=== PATIENT | female | born 1960 | race Caucasian/White ===

== ENCOUNTER → 2020-08-22 15:27 | Outpatient (CLI) | payer BC, SELFPAY ==
--- NOTE | ~2020-08-22 | MM_ITS ---
EXAMINATION: MM screening clarissa BI w mehul HISTORY: Screening mammogram TECHNIQUE: Craniocaudal and mediolateral oblique 3-D tomosynthesis images were obtained and synthetic 2-D images were generated. CAD analysis was submitted and interpreted. COMPARISON: 08/20/2019, 08/05/2018, 08/03/2017 bilateral digital screening mammogram examinations BREAST PARENCHYMAL COMPOSITION: There are scattered areas of fibroglandular density. FINDINGS: There is a biopsy marker on left. History of prior benign left breast biopsies. There is an approximately 5 mm new opacity at mid depth in the ower outer left breast (craniocaudal t omosynthesis image 21/75). Diagnostic left mammogram and left breast ultrasound are recommended. Otherwise there is no evidence of suspicious mass, calcification, or architectural distortion to sugg est malignancy in either breast. There has been no other suspicious interval change. IMPRESSION: 1. New 5 mm mass suggested in the lower outer quadrant of left breast 2. Diagnostic left mammogram and left breast ultrasound examination are recommended. BI-RADS Category 0: Incomplete: Needs additional imaging evaluation. Reviewed, dictated and finalized at location B. LEMAN IMPRESSION: 1. New 5 mm mass suggested in the lower outer quadrant of left breast 2. Diagnostic left mammogram and left breast ultrasound examination are recomme nded. BI-RADS Category 0: Incomplete: Needs additional imaging evaluation.
== END ==
PROVIDERS: Visit Provider Obstetrics & Gynecology
DX: Z12.31 Encounter for screening mammogram for malignant neoplasm of breast (principal); R92.8 Other abnormal and inconclusive findings on diagnostic imaging of breast
CPT/HCPCS: 77063; 77067

== ENCOUNTER → 2020-09-19 07:58 | Outpatient (CLI) | payer BC, SELFPAY ==
--- NOTE | ~2020-09-19 | MMUS_ITS ---
EXAMINATION: MM diagnostic mammo unilat LT, US breast LT limited HISTORY: Left breast mass on screening mammogram TECHNIQUE: Additional 3-D tomosynthesis images of the left breast were performed and synthetic 2-D im ages were generated. CAD analysis was submitted and interpreted. High resolution limited left breast ultrasound was performed. COMPARISON: 08/22/2020, 08/20/2019, 08/05/2018, 08/03/2017 FINDINGS: MAMMOGRAPHIC FINDINGS: No persistent mass is identified with spot compression views of the breast. There is no suspicious ca lcification or architectural distortion. ULTRASOUND: There is a 5 mm x 3 mm oval, circumscribed, parallel, hypoechoic mass at the 4:00 location 4 cm from the nipple with no posterior features or internal vascularity. A 2 mm round mass with similar sonogra phic features is also seen at the same location. A mass with biopsy change is present at the 6:00 loc ation 6 cm from the nipple. IMPRESSION: 1. Probably benign left breast masses. 2. Recommend 6 month follow-up left diagnostic mammogram and ultrasound. BI-RADS category 3, probably benign findings. Reviewed, dictated and finalized at location A. ORT CLERK IMPRESSION: 1. Probably benign left breast masses. 2. Recommend 6 month follow-up left diagnostic mammogram and ultrasound. BI-RADS category 3, probably benign findings.
== END ==
PROVIDERS: Visit Provider Obstetrics & Gynecology
DX: R92.8 Other abnormal and inconclusive findings on diagnostic imaging of breast (principal)
CPT/HCPCS: 76642; 77065

== ENCOUNTER → 2021-03-26 07:28 | Outpatient (CLI) | payer BC, SELFPAY ==
--- NOTE | ~2021-03-26 | MMUS_ITS ---
EXAMINATION: MM diagnostic clarissa LT w mehul, US breast LT limited HISTORY: Follow-up left breast mass TECHNIQUE: Additional 3-D tomosynthesis images of the left breast were performed and synthetic 2-D im ages were generated. CAD analysis was submitted and interpreted. High resolution Limited left breast ultrasound was performed. COMPARISON: Comparison to multiple prior studies sequentially, with oldest reviewed study dated 07/17. BREAST PARENCHYMAL COMPOSITION: Breast composed of scattered areas of fibroglandular density. FINDINGS: MAMMOGRAPHIC FINDINGS: There are no new masses, calcifications or architectural distortion in the left breast to suggest mal ignancy. Stable benign-appearing left breast mass in the lower inner quadrant with associated tissue marker from previous benign biopsy. ULTRASOUND: Limited left breast ultrasound: At 4:00, 4 cm from the nipple, there is oval hypoechoic 5 mm mass wit hout posterior features, posterior features or internal vascularity. Parallel orientation. At 4:00, 4 cm from the nipple, there is a small 2 mm hypoechoic lesion. At 6:00, 6 cm from the nipple, there is a 3 mm oval hypoechoic mass without posterior features, parallel orientation. At 7:00, 6 cm from the nipple there is a stable hypoechoic mass measuring 6 mm without significant change in size, likely a cluster of microcysts. IMPRESSION: 1. Stable benign-appearing left breast masses. 2. Recommend 6 month follow-up left breast ultrasound BI-RADS category 3, probably benign findings. Reviewed, dictated and finalized at location A. IMPRESSION: 1. Stable benign-appearing left breast masses. 2. Recommend 6 month follow-up left breast ultrasound BI-RADS category 3, probably benign findings.
== END ==
PROVIDERS: Visit Provider Obstetrics & Gynecology
DX: N63.20 Unspecified lump in the left breast, unspecified quadrant (principal); R92.8 Other abnormal and inconclusive findings on diagnostic imaging of breast
CPT/HCPCS: 76642; 77061; 77065; G0279

== ENCOUNTER → 2021-11-14 08:19 | Outpatient (CLI) | payer BC, SELFPAY ==
--- NOTE | ~2021-11-14 | MMUS_ITS ---
EXAMINATION: MM diagnostic clarissa BI w mehul, US breast LT limited HISTORY: Six-month follow-up for probably benign left breast masses TECHNIQUE: Craniocaudal, mediolateral, and mediolateral oblique 3-D tomosynthesis images of the breas ts were performed and synthetic 2-D images were generated. CAD analysis was submitted and interpreted . High resolution limited left breast ultrasound was performed. COMPARISON: 03/26/2021, 09/19/2020, 08/22/2020, 08/20/2019 07/08/2013 BREAST PARENCHYMAL COMPOSITION: There are scattered areas of fibroglandular density. FINDINGS: MAMMOGRAPHIC FINDINGS: There is no suspicious mass, calcification, or architectural distortion in either breast to suggest malignancy. There has been no suspicious interval change. A stable left breast mass with biopsy lee e is seen in the lower inner breast. ULTRASOUND: There is a stable oval hypoechoic mass with no posterior features or internal vascularity at the 7:00 location 6 cm from the nipple corresponding to the previously biopsied mass. The previously describe d masses at the 4:00 and 6:00 location of the breast are no longer identified. IMPRESSION: 1. No mammographic or sonographic evidence of malignancy. 2. Recommend routine screening mammography in one year. BI-RADS Category 2: Benign finding(s). Reviewed, dictated and finalized at location A. IMPRESSION: 1. No mammographic or sonographic evidence of malignancy. 2. Recommend routine screening mammography in one year. BI-RADS Category 2: Benign finding(s).
== END ==
PROVIDERS: Visit Provider Obstetrics & Gynecology
DX: N63.24 Unspecified lump in the left breast, lower inner quadrant (principal); N63.23 Unspecified lump in the left breast, lower outer quadrant; R92.8 Other abnormal and inconclusive findings on diagnostic imaging of breast
CPT/HCPCS: 76642; 77062; 77066; G0279

== ENCOUNTER 2022-04-05 07:20 | Outpatient (CLI) | payer OTHER, SELFPAY ==
[2022-04-05 08:36] LABS: Alanine Aminotransferase 19 U/L (6-35); Albumin Level 4.4 g/dL (3.5-5.1); Alkaline Phosphatase 72 U/L (38-126); Anion Gap 9 mmol/L (8-16); Aspartate Amino Transferase 23 U/L (14-36); Bilirubin,Total 0.2 mg/dL (0.2-1.3); Blood Urea Nitrogen 19 mg/dL (7-17); Carbon Dioxide 30 mmol/L (22-30); Chloride 104 mmol/L (98-107); Cholesterol 192 mg/dL (0-200); Estimated Glomerular Filt Rate > 60; Glucose 100 mg/dL (65-110); HDL Direct 56 mg/dL; Potassium 3.8 mmol/L (3.4-5.0); Sodium 143 mmol/L (137-145); Triglycerides 97 mg/dL (<150)
[2022-04-05 08:47] LABS: LDL Cholesterol Direct 94 mg/dL
[2022-04-05 09:29] LABS: Free T4 Free Thyroxine 1.67 ng/mL (0.78-2.19)
[2022-04-05 09:31] LABS: Hemoglobin A1C 5.2 % (<5.7)
== END 2022-04-05 07:21 | disposition home or self-care (01) ==
PROVIDERS: PCP Emergency Medicine; Visit Provider Emergency Medicine
DX: E03.9 Hypothyroidism, unspecified (principal); E66.9 Obesity, unspecified
CPT/HCPCS: 36415; 80053; 80061; 83036; 84439; 84443

== ENCOUNTER → 2022-05-15 15:40 | Outpatient (CLI) | payer OTHER, SELFPAY ==
--- NOTE | ~2022-05-15 | XR_ITS ---
[id number] 05/15/2022 15:55 Indication: Left foot pain Procedure: 3 views left foot Comparison: No prior studies for comparison. Findings: There is mild osteoarthritis of the first MTP joint with hallux valgus. There is a degenera tive calcaneal enthesophyte. No acute fracture or traumatic malalignment. Lisfranc joint intact. Ther e are mild degenerative changes at the talonavicular joint. 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 2: Degenerative calcaneal enthesophyte at the plantar surface. Reviewed, dictated and finalized at location B. 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 2: Degenerative calcaneal enthesophyte at the plantar surface.
== END ==
PROVIDERS: PCP Emergency Medicine; Visit Provider Emergency Medicine
DX: M19.072 Primary osteoarthritis, left ankle and foot (principal); M77.32 Calcaneal spur, left foot
CPT/HCPCS: 73630

== ENCOUNTER → 2023-05-21 15:18 | Outpatient (CLI) | payer OTHER, SELFPAY ==
--- NOTE | ~2023-05-21 | MM_ITS ---
EXAMINATION: MM screening clarissa BI w mehul HISTORY: Screening mammogram TECHNIQUE: Craniocaudal and mediolateral oblique 3-D tomosynthesis images were obtained and synthetic 2-D images were generated. CAD analysis was submitted and interpreted. COMPARISON: 11/14/2021 diagnostic bilateral mammogram and limited left breast ultrasound examination BREAST PARENCHYMAL COMPOSITION: There are scattered areas of fibroglandular density. FINDINGS: Surgical clips, right axillary area. Biopsy marker on the left; history of prior benign lef t breast biopsy. There is no evidence of suspicious mass, calcification, or architectural distortion to suggest malignancy in either breast. There has been no suspicious interval change. IMPRESSION: 1. No mammographic evidence of malignancy. 2. Recommend routine screening mammography in one year. BI-RADS Category 2: Benign finding(s). Reviewed, dictated and finalized at location B.
== END ==
PROVIDERS: PCP Nurse Practitioner Obstetrics & Gynecology; Visit Provider Nurse Practitioner Obstetrics & Gynecology
DX: Z12.31 Encounter for screening mammogram for malignant neoplasm of breast (principal)
CPT/HCPCS: 77063; 77067

== ENCOUNTER 2024-01-05 13:16 | Outpatient (CLI) | payer OTHER, SELFPAY ==
--- NOTE | ~2024-01-05 | DEXA_ITS ---
Bone Density Report Name: JOE STEVENS Age: 63 Sex: Female Ethnicity: White Date of : 1960 Indication: postmenopausal; screening for osteoporosis; height loss; Referring Provider: PRINCESS CASILLAS Study: Bone densitometry was performed. Exam Date: January 05, 2024 Accession number: [id number] Bone Density: Region BMD T-score Z-score Classification AP Spine (L1, L3, L4) 1.202 1.4 2.9 Normal Femoral Neck (Left) 0.685 -1.5 -0.1 Osteopenia Total Hip (Left) 0.891 -0.4 0.6 Normal Femoral Neck (Right) 0.732 -1.1 0.3 Osteopenia Total Hip (Right) 0.890 -0.4 0.6 Normal Total Hip Mean 0.890 -0.4 0.6 Normal World Health Organization criteria for BMD impression classify patients as: Normal (T-score at or above -1.0), Osteopenia (T-score between -1.0 and -2.5), or Osteoporosis (T-score at or below -2.5). 10-year Fracture Risk(1): Major Osteoporotic Fracture 7.3% Hip Fracture 0.6% Reported Risk Factors: [place] (), Neck BMD=0.685, BMI=38.2 (1) FRAX(R) Version 3.08. Fracture probability calculated for an untreated patient. Fracture probability may be lower if the patient has received treatment. Clinical Information Provided by Patient: Patient maximum height was 63.5 Menopause Age: 58 No regular weight bearing exercise Drinks caffeinated beverages Onset of menses at age 16.5 Number of children 1 Impression: The patient has low bone mass, based on the Left Femoral Neck T-score. The patient has an estimated ten-year risk of hip fracture of 0.6% and an estimated ten-year risk of major fracture of 7.3%, based on the WHO FRAX algorithm. Discussion: BONE DENSITY IS LOW AT ONE OR MORE SKELETAL SITES. This patient's lowest T-score is low at one or more skeletal sites. It meets the World Health Organization's (WHO) criteria for ?low bone mass? (T-score between -1.0 and -2.5). The patient's 10-year risk of fracture as calculated by FRAX is less than the threshold where pharmacological therapy is recommended by the National Osteoporosis Foundation (NOF). However, all treatment decisions require clinical judgment and consideration of individual patient factors, including patient preferences, comorbidities, previous drug use, risk factors not captured in the FRAX model (e.g., frailty, falls, vitamin D deficiency, increased bone turnover, interval significant decline in bone density) and possible under or overestimation of fracture risk by FRAX. The patient should follow a healthful lifestyle (good nutrition with adequate calcium and vitamin D, and appropriate weight-bearing exercise). Follow-Up: Consider repeating this study in 2 to 3 years to reassess this patient's status, or sooner if there is some new clinical indication. Reported by: TANI on 01/05/2024 1:41:00 PM.
== END 2024-01-05 13:17 ==
LOC: MICIMG 13:17
PROVIDERS: PCP Emergency Medicine; Visit Provider Nurse Practitioner Family
DX: Z78.0 Asymptomatic menopausal state (principal); M85.89 Other specified disorders of bone density and structure, multiple sites
CPT/HCPCS: 77080

== ENCOUNTER 2024-04-07 12:32 | Outpatient (CLI) | payer OTHER, SELFPAY ==
[2024-04-07 14:41] LABS: Total Triiodothyronine (T3) 1.35 NG/ML (0.97-1.69)
[2024-04-07 15:13] LABS: Free T4 Free Thyroxine 1.58 ng/mL (0.78-2.19)
== END 2024-04-07 12:33 | disposition home or self-care (01) ==
LOC: ANHGOSHLAB 12:33
PROVIDERS: PCP Emergency Medicine; Visit Provider Emergency Medicine
DX: E03.9 Hypothyroidism, unspecified (principal)
CPT/HCPCS: 36415; 84439; 84443; 84480

== ENCOUNTER 2024-06-18 12:07 | Outpatient (CLI) | payer OTHER, SELFPAY ==
[2024-06-18 12:48] LABS: Erythrocyte Sedimentation Rate 19 mm/hr (0-20)
[2024-06-19 07:43] LABS: CRP, High Sensitivity 7.8 mg/L
[2024-06-20 16:14] LABS: ANA Cascade Screen NEGATIVE (NEGATIVE); SS-A <1.0 NEG AI (<1.0 NEG); SS-B <1.0 NEG AI (<1.0 NEG)
[2024-06-23 18:44] LABS: Vitamin B6 34.6 ng/mL (2.1-21.7)
== END 2024-06-18 12:08 | disposition home or self-care (01) ==
LOC: ANHLAB 12:08
PROVIDERS: PCP Emergency Medicine; Visit Provider Nurse Practitioner Family
DX: E03.9 Hypothyroidism, unspecified (principal); K12.1 Other forms of stomatitis; R20.8 Other disturbances of skin sensation
CPT/HCPCS: 36415; 82607; 84207; 84443; 85652; 86038; 86141; 86225; 86235; 86364

== ENCOUNTER 2024-07-12 18:18 | Emergency (ER) | payer OTHER, SELFPAY ==
[2024-07-12 18:26] VITALS: BP 132/69; PULSE 87; RESP 20; TEMP 36.2; O2SAT 100
--- NOTE | 2024-07-12 18:45 | ED.SKABFB ---
HPI - Skin/Abscess/Foreign Bdy General Chief complaint: Skin/Abscess/Foreign Body Stated complaint: POSSIBLE INSECT BITE Time Seen by Provider: 07/12/24 18:40 Source: patient, family, RN notes reviewed and old records reviewed Mode of arrival: ambulatory Limitations: no limitations History of Present Illness HPI narrative: 64 year old female who presents to [facility] care with complaints of working in the yard on Thursday and she was picking up bunches of leaves and she felt something bite or sting her right lateral abdomen. Patient reports that she noted red raised area that has continued to spread in size since Thursday to 17cm X9Cm with some swelling noted on the outer edges and area of darker red inside with no vesicles or any pustules noted, no weeping from skin. Patient has not taken any OTC medication for her symptoms does report itching of tissue area, denies any shortness of breath or any difficulty with her swallowing. MD complaint: rash, insect bite/sting and other Onset (ago): day(s) (3) Location: chest (right flank area) Severity: moderate Quality: pruritic Treatments prior to arrival: none Related Data Home Medications Medication Instructions Recorded Confirmed omega 2-ctk-yqi-fish oil 100 cap PO 04/07/24 06/14/24 mg-160 mg-1,000 mg capsule (Fish Oil) Allergies Allergy/AdvReac Type Severity Reaction Status Date / Time codeine AdvReac Severe N/V Verified 06/14/24 11:37 HYDROCODONE BIT AdvReac Severe N/V Uncoded 06/14/24 11:37 Review of Systems Review of Systems: CONSTITUTIONAL: Denies fever, chills, or sweats. CARDIOVASCULAR: Denies chest pain, palpitations, or edema. RESPIRATORY: Denies cough or dyspnea. denies any difficulty swallowing. SKIN: Reports rash area to right flank area which is red itchy and has spread from initial bite area to [id number] MUSCULOSKELETAL: Denies joint pain or myalgia. NEUROLOGIC: Denies headache, numbness, or weakness. All systems reviewed & are unremarkable except as noted in HPI and below PMFSH Past Medical History Medical History (Updated 07/12/24 @ 19:39 by Karin Herrera NP) GERD (gastroesophageal reflux disease) Hypertension Hypothyroidism Family History Family History Mother Family history of osteoporosis Grandparent Family history of malignant neoplasm of breast Other Family history of arthritis Family history of malignant neoplasm Hypertension Social History Social History Smoking status: Never smoker Alcohol intake: current Substance use: never Lack of Transportation: No Lack of Food: Never True Current Housing: I Have Housing Concerned About Future Housing: No Difficulty Paying Gas/Electric Bills: No Currently Unemployed: No Education: High School Diploma/GED Difficulty w/ Childcare or Family Care: No Comments At time of signature, agree with nursing past medical, surgical, social and family history. There is no relevant family history pertinent to the presenting complaint Exam Narrative: GENERAL: Well-appearing, well-nourished, and in no acute distress. HEAD: Normocephalic, atraumatic. EYES: PERRLA, conjunctivae clear, and EOMI. ENT: Mucous membranes moist. Oropharynx without edema, erythema or lesions. NECK: Supple. No lymphadenopathy CHEST: Clear to auscultation. No respiratory distress.SAO2 100% on room air HEART: Regular rate and rhythm. SKIN: Warm, dry.? Patch of erythema with swelling to right side of abdomen which measures 17cm X 9 cm with tissue itchy no pustules or weeping tissue NEURO:? Alert and oriented x3. PSYCH: Normal mood and affect Course Course Emergency Course: Patient is aware of diagnosis, understands and agrees to treatment plan.? Anticipatory guidance given.? Patient agrees to follow-up as directed and is aware of reasons to seek care at the emergency department. Portions of this record may have been created with voice recognition software Level of Care: Express Care Visit Vital Signs Vital signs: Vital Signs Temperature 36.2 C L 07/12/24 18: Pulse Rate 87 07/12/24 18: Respiratory Rate 20 07/12/24 18:26 Blood Pressure 132/69 07/12/24 18: Pulse Oximetry 100 07/12/24 18:26 Oxygen Delivery Room Air 07/12/24 18: Temperature 36.2 C L 07/12/24 18: Pulse Rate 87 07/12/24 18:26 Respiratory Rate 20 07/12/24 18:26 Blood Pressure 132/69 07/12/24 18:26 Pulse Oximetry 100 07/12/24 18:26 Oxygen Delivery Room Air 07/12/24 18:26 Reviewed MDM - Skin/Abscess/Foreign Bdy MDM Narrative Medical decision making narrative: Does not appear at this time to be erythema multiforme, bullous, SJS, TEN; no evidence at this time to suggest RMSF, endocarditis or Lyme disease; patient looks well, nontoxic and is tolerating oral intake; no neurologic signs or symptoms; no headache, photophobia or neck pain; afebrile; appropriate for initial outpatient treatment; discussed the importance of follow-up, patient agrees; question, viral exanthema, contact dermatitis, allergic dermatitis, eczema, urticaria, [ xx ]. No soft palate or uvula edema, no tongue, lip edema or other mucosal involvement, no respiratory compromise, no stridor, no wheezing, no wheezing, no history of syncope, no hypotension, no nausea, vomiting, or diarrhea.? Instructed patient to go to nearest ER immediately for any worsening symptoms including but not limited to: fever, spreading rash, pain, sore throat, headache, dizziness, chest pain, trouble breathing, or any symptoms concerning to the patient. Differential Diagnosis Differential diagnosis: Likely abscess of skin or subcutaneous tissue, urticaria, cellulitis, insect bites and contact dermatitis Medical Records Attestation: I reviewed the patient's medical records. Critical Care Time Critical Care Time Critical Care Time: No Discharge Plan Discharge Clinical Impression: Contact dermatitis and eczema Insect bite of abdomen with local reaction Qualifiers: Encounter type: initial encounter Qualified Code(s): S30.861A - Insect bite (nonvenomous) of abdominal wall, initial encounter Patient Disposition: Home, Self-Care Condition: Stable Instructions: Antibiotic Form, Contact Dermatitis (ED) Additional Instructions: Apply triamcinolone cream to abdomen rash 2 daily, never apply this ointment tot the face watch for increasing infection--redness, swelling, drainage Tylenol or Ibuprofen follow up with PCP in 7-10 days for a wound check recheck if develop fever, chills, increasing symptom Go to the ER if your symptoms become worse of if ANY new symptoms develop Zyrtec daily for 10 days Pepcid 20 mg daily for 10 days prednisone taper take with food If your symptoms persist, change or worsen significantly before you can contact your personal physician then please, without delay, go to the emergency department for further evaluation. Follow-up with PCP in 7-10 days or sooner if needed Follow up with PCP soon in regards to your blood pressure which is elevated above threshold for referral. Blood pressure above 120/80 may indicate pre-hypertension. 132/69 May also take Benadryl every 6 hours as needed for itching don't drive while taking. Prescriptions: New triamcinolone acetonide 0.1 % ointment 1 applic topical BID Qty: 80 0RF prednisone 10 mg tablet 10 mg PO DIRECTED Qty: 21 0RF Rx Instructions: see taper instructions 6 tabs day 1, 5 tabs day 2, 4 tabs day 3, 3 tabs day 4, 2 tabs day 5, 1 tab day 6 famotidine 20 mg tablet 20 mg PO DAILY Qty: 10 0RF No Action topiramate 25 mg tablet 25 mg PO .COMPLEX Qty: 180 0RF Rx Instructions: Take 1 tablet daily for 2 weeks; Then 1 tablet twice daily there after Magic Mouthwash (Dr. Harrell) 120 mL suspension 5 ml PO Q4H PRN (Reason: stomatitis) Qty: 120 0RF Rx Instructions: diphenhydramine 12.5 mg/5 mL oral elixir 40 mL; Lidocaine Viscous 2 % mucosal solution 40 mL; Maalox 200 mg-200 mg-20 mg/5 mL oral suspension 40 mL; Per 120 mL Fish Oil 100-160-1,000 mg capsule PO lisinopril-hydrochlorothiazide 20-12.5 mg tablet 1 tablet PO DAILY Qty: 90 1RF levothyroxine [Synthroid] 100 mcg tablet See Rx Instructions .ROUTE .COMPLEX Qty: 90 1RF Dose Instruction: TAKE 1 TABLET DAILY Rx Instructions: TAKE 1 TABLET DAILY phentermine 37.5 mg tablet 37.5 mg PO DAILY Qty: 90 0RF Follow-up/Referrals: Dajuan Herrera MD [Primary Care Provider] - Time of Disposition: 19:00 Quality [place] Coma Scale Eyes: Open Verbal: Oriented and Alert Motor: Follows Commands [place] Coma Total Score: 15
== END 2024-07-12 19:08 | disposition home or self-care (01) ==
PROVIDERS: Emergency Provider Registered Nurse; PCP Emergency Medicine
DX: S30.861A Insect bite (nonvenomous) of abdominal wall, initial encounter (principal); L25.9 Unspecified contact dermatitis, unspecified cause; I10 Essential (primary) hypertension; E03.9 Hypothyroidism, unspecified; W57.XXXA Bitten or stung by nonvenomous insect and other nonvenomous arthropods, initial encounter
CPT/HCPCS: 99213; G0463

== ENCOUNTER 2024-07-22 15:24 | Outpatient (CLI) | payer OTHER, SELFPAY ==
--- NOTE | ~2024-07-22 | MM_ITS ---
EXAMINATION: MM screening clarissa BI w mehul HISTORY: Screening TECHNIQUE: Craniocaudal and mediolateral oblique 3-D tomosynthesis images were obtained and synthetic 2-D images were generated. CAD analysis was submitted and interpreted. COMPARISON: Comparison to multiple prior studies sequentially, with oldest reviewed study dated 11/2019. BREAST PARENCHYMAL COMPOSITION: There are scattered areas of fibroglandular density. FINDINGS: There is no evidence of suspicious mass, calcification, or architectural distortion to sugg est malignancy in either breast. There has been no suspicious interval change. IMPRESSION: 1. No mammographic evidence of malignancy. 2. Recommend routine screening mammography in one year. BI-RADS Category 1: Negative Reviewed, dictated and finalized at location B. SIFICATION CLERK
== END 2024-07-22 15:25 | disposition home or self-care (01) ==
PROVIDERS: PCP Obstetrics & Gynecology Gynecology; Visit Provider Obstetrics & Gynecology Gynecology
DX: Z12.31 Encounter for screening mammogram for malignant neoplasm of breast (principal)
CPT/HCPCS: 77063; 77067

== ENCOUNTER 2025-02-10 08:09 | Outpatient (CLI) | payer OTHER, SELFPAY ==
[2025-02-10 18:04] LABS: Basophils Absolute Auto 0.1 K/mm3 (0.0-0.1); Basophils Percent Auto 1.6 % (0.2-1.2); Eosinophils Absolute Auto 0.3 K/mm3 (0-0.3); Eosinophils Percent Auto 3.8 % (0-4.4); Hematocrit 38.1 % (37.0-47.0); Hemoglobin 11.9 g/dL (12.0-15.0); Immature Granulocyte Absolute 0.01 K/mm3 (0.00-0.031); Immature Granulocyte Percent A 0.1 % (0-0.5); Lymphocytes Percent Auto 22.3 % (18.3-44.2); Mean Corpuscular HGB Conc 31.2 g/dl (32-36); Mean Corpuscular Hemoglobin 29.5 pg (26-34); Mean Corpuscular Volume 94.3 fl (80-100); Mean Platelet Volume 9.6 fl (7.4-10.4); Monocytes Absolute Auto 0.7 K/mm3 (0.1-0.6); Monocytes Percent Auto 9.4 % (2.6-8.5); Neutrophils Absolute Auto 4.8 K/mm3 (1.3-6.7); Neutrophils Percent Auto 62.8 % (45.5-73.1); Platelet Count Result 357 k/mm3 (150-375); Red Blood Count 4.04 M/mm3 (4.2-5.4); Red Cell Distribution Width 13.3 % (11.5-14.5); White Blood Count 7.6 K/mm3 (4.5-10.0)
[2025-02-10 18:17] LABS: Alanine Aminotransferase 18 U/L (6-35); Albumin Level 4.2 g/dL (3.5-5.1); Alkaline Phosphatase 49 U/L (38-126); Anion Gap 10 mmol/L (4-12); Aspartate Amino Transferase 30 U/L (14-36); Bilirubin,Total 0.4 mg/dL (0.2-1.3); Blood Urea Nitrogen 33 mg/dL (7-17); Calcium 9.8 mg/dL (8.4-10.2); Carbon Dioxide 28 mmol/L (22-30); Chloride 102 mmol/L (98-107); Cholesterol 199 mg/dL (0-200); Estimated Glomerular Filt Rate 32; Glucose 77 mg/dL (65-110); HDL Direct 53 mg/dL; Potassium 4.5 mmol/L (3.4-5.0); Sodium 140 mmol/L (137-145); Total Protein 7.2 g/dL (6.3-8.2); Triglycerides 114 mg/dL (<150)
[2025-02-10 18:31] LABS: LDL Cholesterol Direct 95 mg/dL
[2025-02-10 18:46] LABS: Hemoglobin A1C. 5.6 % (<5.7)
== END 2025-02-10 08:10 | disposition home or self-care (01) ==
LOC: ANHGOSHLAB 08:10
PROVIDERS: PCP Nurse Practitioner Family; Visit Provider Nurse Practitioner Family
DX: E03.9 Hypothyroidism, unspecified (principal); I10 Essential (primary) hypertension; K21.9 Gastro-esophageal reflux disease without esophagitis; E66.9 Obesity, unspecified; K12.1 Other forms of stomatitis
CPT/HCPCS: 36415; 80053; 80061; 83036; 84443; 85025

== ENCOUNTER 2025-03-02 15:50 | Outpatient (CLI) | payer OTHER, SELFPAY ==
--- OUTSIDE RECORDS SUMMARY | 2025-03-02 15:55 | XMS_ITS | Data Portability ---
Author Organization [facility] [place] Address [address] [place] [address] Care Team Providers [employer] T[employer] Name Role Phone KINZA MONACO Primary Care Provider Assessment Encounter Date Assessment Date Assessment LastModified by Organization Details LastModified Time 08/08/2020 08/08/2020 healthy female exam/menopause patient declines std testing pap done with HPV, discussed guidelines mammogram due next month, ordered colonoscopy due 2022 dexa basline at 60-65 Encouraged weight bearing exercise and 1500mg daily of Calcium with Vitamin D will contact PCP re elevated BP and high cholesterol as of last year. FU 1 year or prn [email or web address] Not available 08/08/2020 16:37:09 12/02/2022 12/02/2022 healthy female exam/menopause patient declines std testing pap done mammogram ordered and encouraged colonoscopy referral placed dexa ordered and encouraged Encouraged weight bearing exercise and 1500mg daily of Calcium with Vitamin D FU 1 year or prn [email or web address] Not available 12/02/2022 18:45:03 Plan of Treatment Reminders Order Date Submit Date Provider Last Modified By Organization Details Last Modified Time Details Appointments None recorded. Lab None recorded. Referral None recorded. Procedures None recorded. Surgeries None recorded. Imaging None recorded. Medication Orders Synthroid 100 mcg tablet 2019 020 INTERFACE [id number], [address] [facility], [place], [id number], 0 16:18:35 Patient TargetsNo targets recorded. Patient InstructionsNo instructions recorded. Reason for Referral None Reported. Results Created Date Observation Date Name Description Value Unit Range Abnormal Flag Note LastModifiedBy Organization Detail LastModifiedTime 08/08/20 20 08/13/2020 pap, LB Pap test thin prep Negati ve for Intrae pithel ial Lesion or Malign quita normal ACCES YIN #: [id number] Sourc e: Cervi tabatha/E ndoce rvica l LMP: 2019 Date Taken : 08/08 Speci men Type: ThinP rep Vial Date Repor naun: 08/13 Clini tabatha Data: Cytot ech: Francis Horowitz cki CT( CP) Date Repor naun: 08/13 Speci men Adequ acy: Satis facto ry for evalu ation Endoc ervic al/tr ansfo rmati on zone compo nent prese nt Gener al Categ oriza tion: NEGAT ALEKS FOR INTRA EPITH ELIAL LESIO N OR MALIG ELIOT This speci men has been mainor zed by the ThinP rep Imagi ng Syste m, an inter activ e compu ter syste m which darryl ts the lab in the scree alexis of ThinP rep Pap Test slide s. Darricko wing imagi ng, the slide was revie wed by a Cytot echno logis t and/o r Patho logis t. D N A A S S A Y S R E P O R T TEST NAME RESUL TS ----- ---- ----- -- HPV High Risk Scree n (TMA) ThinP rep Vial The human papil lomav irus (HPV) High Risk Scree n is an FDA-a pprov ed in-vi tro ampli fied nucle ic acid test for the quali tativ e detec tion of E6/E7 viral mRNA. Resul ts shoul d be corre lated with patie nt prese ntati on, histo ry, cervi tabatha cytol ogy and other clini tabatha and labor atory findi ngs. See https ://[employer]uss [employer]/s rosa/ delilah lt/fi les/2 018-0 3/AW- 28785 _002_ 01.pd f for furth er infor matio n. Test perfo rmed by [facility] d/b/a [facility], [address], [place] [address] , Aurelia Childs ra, DO, [facility]. HPV High Risk *HPV NOT DETEC NAUN (TYPE S 16, 18, 31, 33, 35, 39, 45, 51, 52, 56, 58, 59, 66, 68) *HPV: The human papil lomav irus (HPV) High Risk Toya edwards is an FDA-a pprov ed in-vi tro ampli fied nucle ic acid test for the quali tativ e detec tion of E6/E7 viral mRNA. Resul ts shoul d be corre lated with piyush nt prese ntati on, histo ry, cervi tabatha cytol ogy and other clini tabatha and labor atory findi ngs. See https ://[employer]find/s ites/ defau lt/fi les/2 018-0 3/AW- 01991 _002_ 01.pd f for anita burnett infor isaias n. Test perfo rmed by [facility], d/b/a [facility], [address], [place] [address] , Aurelia Childs ra, DO, [facility]. End of Repor t Techn ical servi [place] provi ded by [employer] [facility], [facility]/b/a [facility], [address] [place] [address] Cameron Beck MD, [facility]. Case revie wed and diagn osis rende red at [employer], d/b/a [facility], [address] [place] [address] Cameron Beck MD, [facility]. CONFI DENTI AL Not Available [facility] ([facility]) [address], [place], [address], 08/13/2020 11:14:12 08/08/20 20 08/09/2020 HPV DNA, high- risk HPV high risk NOT DETECT ED normal Not Available [facility] ([facility]) [address], [place], [address], 08/13/2020 11:14:13 12/03/19 23 12/02/2022 IMAGE GUIDE D PAP AND HPV REGAR DLESS image guided Pap, HPV regardless of Pap result SEE RESULT S BELOW CASE REPOR T: Cytol ogy Gynec ologi tabatha Repor t Case: [id number] Autho clarke fabian Provi jaswinder: sEtella Sorensen MD Colle cted: 12/02 1714 Order ing Locat ion: [place] [facility] Recei mariano: 12/03 0223 First Scree n: Dolores Durbin ica Rescr een: Katy Chung, CT Speci men: Scree alexis Pap - Image d, Cervi x STATE MENT OF ADEQU ACY: Satis facto ry for evalu ation Trans forma tion zone compo nent absen t The absen ce of an endoc ervic al compo nent was confi rmed by an addit ional toya ner. FINAL DIAGN OSIS: Negat aleks for Intra epith elial Lesio n or Rosario smyth (NIL) . Shift in jorge sugge stive of bacte rial vagin osis. Elect abner crandall d by Katy Chung, CT on 2022 at 7:56 AM ----- ----- ----- ----- ----- ----- ----- ----- ----- ----- ----- ----- ----- ----- ----- ----- ----- ---- HPV RESUL TS: HPV mRNA E6/E7 : No HPV mRNA Detec naun NOTE: This high risk HPV mRNA assay detec ts fourt een high- risk HPV types (16, 18, 31, 33, 35, 39, 45, 51, 52, 56, 58, 59, 66, 68) witho ut diffe renti ation . COMME NT: This speci men was revie wed by a Cytot echno logis t and/o r Patho logis t (as indic ated in this repor t) after evalu ation using the Thinp rep Imagi ng Syste m. CLINI TABATHA INFOR MATIO N: Menst rual Statu s: LMP (if appli cable ): Clini tabatha Histo ry/Pr eviou s Pap: Type of Neopl alexandria (if appli cable ): Signi fican t Clini tabatha Findi ngs: Other Histo ry: Hormo satya (if appli cable ): PAP EDUCA MARCO L NOTE: The Pap Test is a scree alexis test with an inher ent false negat aleks rate. Liqui d-bas ed sampl ing may decre ase, but will not elimi otis, false negat aleks resul ts. A negat aleks resul t does not precl ude the prese nce and/o r devel opmen t of disea se, since the prese nce of abnor mal cells in the sampl e depen ds on the locat ion of the lesio n and sampl ing techn ique. Jeancarlos nued regul ar scree alexis is the best metho d of cance r preve ntion . If repor naun cytol ogic findi ng do not corre late with physi tabatha and/o r histo rical findi ngs, furth er inves tigat ion is recom annie d, as clini olivia gonzalez nted. Not Available [facility] (Lab) [address], [place], [address], 12/05/2022 08:59:36 08/22/19 21 08/22/2020 MAMMO , scree alexis, bilat eral No observ ation record ed. [facility] [address], [place], [address], 08/28/2020 19:31:31 08/22/19 21 08/22/2020 MAMMO , scree alexis, bilat eral No observ ation record ed. [facility] [address], [place], [address], 08/23/2020 16:18:15 09/20/19 21 09/19/2020 MAMMO , diagn ostic , unila teral No observ ation record ed. [facility] [address], [place], [address], 09/21/2020 15:58:35 03/26/20 21 03/26/2021 MAMMO , diagn ostic , unila teral No observ ation record ed. [facility] [address], [place], [address], 03/26/2021 13:23:50 11/16/19 22 11/14/2021 MAMMO , diagn ostic , bilat eral No observ ation record ed. [facility] [address], [place], [address], 11/17/2021 11:49:07 05/22/2005/21/2023 MAMMO , scree alexis, bilat eral No observ ation record ed. [facility] [address], [place], [address], 05/27/2023 07:08:29 Result Notes Documentation Provider Name and Address Organization Details Recorded Time Mammo, Screening, Bilateral : duplicate report Gabino bello MS - [facility] 08/23/2020 16:18:15 Problems Name Problem SNOMED Code Status Onset Date Resolution Date Notes Provider Name and Address Organization Details Recorded Time Screenin g for malignan t neoplasm of cervix Completed 201008/08/2020 Screenin g for malignan t neoplasm s of the cervix;R ecorded Elsewher e: No Locat ion: [facility] S ource: EHR Principal Engineer ivanna: N Practi ce ID: 0001 Darren lable Time: 03:30:00 PM Estella Antoine MD [address], [place], [address], [facility] 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 Polyp of corpus uteri;Re corded Elsewher e: No Locat ion: [facility] S ource: EHR Principal Engineer ivanna: Y Practi ce ID: 0001 Darren lable Time: 03:30:00 PM Not Available [facility] 0 15:38:11 Screenin g for malignan t neoplasm of rectum Completed 201008/08/2020 Screenin g for malignan t neoplasm s of the rectum;R ecorded Elsewher e: No Locat ion: [facility] S ource: EHR Principal Engineer ivanna: N Practi ce ID: 0001 Darren lable Time: 03:30:00 PM Estella Antoine MD [address], [place], [address], [facility] 0 16:16:05 Pre-surg ramiro evaluati on Completed 201008/08/2020 Pre-oper ative examinat ion, unspecif ied;Prac zi ID: 0001 Estella Antoine MD [address], [place], [address], [facility] 0 16:15:57 Atypical squamous cells of undeterm ined signific ance on cervical Papanico laou smear [id number] Completed 201108/08/2020 Papanico laou smear of cervix with atypical squamous cells of undeterm ined signific ance (ASC-US) ;Recorde d Elsewher e: No Locat ion: [facility] S ource: EHR Principal Engineer ivanna: N Practi ce ID: 0001 Darren lable Time: 05:00:00 PM Estella Antoine MD [address], [place], [address], [facility] 0 16:15:23 Microsco pic hematuri a [id number] Completed 201108/08/2020 MICROSCO PIC HEMATURI A;Record ed Elsewher e: No Locat ion: [facility] S ource: EHR Principal Engineer ivanna: N Ellis ce ID: 0001 Darren lable Time: 03:00:00 PM Estella Antoine MD [address], [place], [address], [facility] 0 16:15:48 Dyspareu vicki [id number] Completed 201108/08/2020 Dyspareu vicki;Prac zi ID: 0001 Estella Antoine MD [address], [place], [address], [facility] 0 16:15:28 Abdomina l pain 81033942 Completed 201108/08/2020 Abdomina l pain, other specifie d site;Pra ctice ID: 0001 Estella Antoine MD [address], [place], [address], [facility] 0 16:15:15 Dysfunct ional uterine bleeding Completed 201108/08/2020 Other disorder s of menstrua tion and other abnormal bleeding from female genital tract;Re corded Elsewher e: No Locat ion: [facility] S ource: EHR Principal Engineer ivanna: N Ellis ce ID: 0001 Darren lable Time: 05:15:00 PM Estella Antoine MD [address], [place], [address], [facility] 0 16:15:26 Female genital organ symptoms 978223815 Completed 201108/08/2020 Unspecif ied symptom associat ed with female genital organs;P ractice ID: 0001 Estella Antoine MD [address], [place], [address], [facility] 0 16:15:31 Speciali zed medical examinat ion Completed 201208/08/2020 Gynecolo gical Examinat ion;Francisco rded Elsewher e: No Locat ion: [facility] S ource: EHR Principal Engineer ivanna: N Nafisati ce ID: 0001 Darren lable Time: 02:30:00 PM Estella Antoine MD [address], [place], [address], [facility] 0 16:16:14 Leukocyt osis 047540661 Completed 201308/08/2020 LEUKOCYT OSIS NOS;Francisco rded Elsewher e: No Locat ion: [facility] S ource: EHR Principal Engineer ivanna: N Nafisati ce ID: 0001 Darren lable Time: 03:00:00 PM Estella Antoine MD [address], [place], [address], [facility] 0 16:15:46 Adult health examinat ion Completed 201308/08/2020 ROUTINE MEDICAL EXAM;Rec orded Elsewher e: No Locat ion: [facility] S ource: EHR Principal Engineer ivanna: N Nafisati ce ID: 0001 Darren lable Time: 03:00:00 PM Estella Antoine MD [address], [place], [address], [facility] 0 16:15:17 Finding of pattern of menstrua l cycle [id number] Completed 201408/08/2020 Excessiv e and frequent menstrua tion with irregula r cycle;Pr actice ID: 0001 Estella Antoine MD [address], [place], [address], [facility] 0 16:15:38 Finding of pattern of menstrua l cycle Completed 201408/08/2020 Other specifie d irregula r menstrua tion;Rec orded Elsewher e: No Locat ion: [facility] S ource: EHR Principal Engineer ivanna: N Practi ce ID: 0001 Darren lable Time: 04:15:00 PM Estella Antoine MD [address], [place], [address], [facility] [address] 16:15:[address] Concept Completed 201408/08/2020 Well woman check w/ abnormal finding; Recorded Elsewher e: No Locat ion: [facility] S ource: EHR Principal Engineer ivanna: N Practi ce ID: 0001 Darren lable Time: 02:30:00 PM Estella Antoine MD [address], [place], [address], [facility] 0 16:16:09 Blood leukocyt e number above referenc e range [id number] Completed 201408/08/2020 Elevated white blood cell count, unspecif ied;Prac zi ID: [address], [place], [address], [facility] 0 16:15:41 Urinary tract infectio us disease 55216958 Completed 201408/08/2020 UTI;Francisco rded Elsewher e: No Locat ion: [facility] S ource: EHR Principal Engineer ivanna: N Practi ce ID: 0001 Darren lable Time: 02:30:[address] MD [address], [place], [address], [facility] 0 16:16:17 Pregnanc y test negative [id number] Completed 201408/08/2020 Encounte r for pregnanc y test, result negative ;Practic e ID: [address], [place], [address], [facility] 0 16:15:59 Irregula r intermen strual bleeding 02438802 Completed 201408/08/2020 Metrorrh agia;Rec orded Elsewher e: No Locat ion: [facility] S ource: EHR Principal Engineer ivanna: N Practi ce ID: 0001 Darren lable Time: 10:00:00 AM Estella Antoine MD [address], [place], [address], [facility] 0 16:15:44 Finding by site Completed 201608/08/2020 Dermatit is, unspecif ied;Prac zi ID: 0001 Estella Antoine MD [address], [place], [address], [facility] 0 16:15:33 Neoplast ic disease of uncertai n behavior [id number] Completed 201608/08/2020 Neoplasm of uncertai n behavior , unspecif ied;Francisco rded Elsewher e: No [facility] S ource: EHR Principal Engineer ivanna: N Practi ce ID: 0001 Darren lable Time: 03:45:00 PM Estella Antoine MD [address], [place], [address], [facility] [address] 16:[address] Concept Completed 201608/08/2020 Encntr for general adult medical exam w/o abnormal findings ;Recorde d Elsewher e: No Locat ion: Anjali berto [facility] S ource: EHR Principal Engineer ivanna: N Practi ce ID: 0001 Darren lable Time: 03:30:00 PM Estella Antoine MD [address], [place], [address], [facility] 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 0 16:16:12 Hypothyr oidism 91388116 Active 2019 Estella Antoine MD [address], [place], [address], [facility] 0 16:16:24 Hypercho lesterol emia 48560328 Active 2019 Estella Antoine MD [address], [place], [address], [facility] 0 16:16:32 Elevated blood-pr essure reading without diagnosi s of hyperten yin 121171395 Active 2019 Estella Antoine MD [address], [place], [address], [facility] 0 16:16:50 Body mass index 30+ - obesity 560731674 Active 2019 Estella Antoine MD [address], [place], [address], [facility] 0 16:16:57 Problem Notes None recorded. Procedures Surgical History Date Name Laterality Status Provider Name and Address Organization Details Recorded Time 11/15/19 22 Date of Last Mammogram completed Whitneykaren Loza [facility] 12/02/2022 16:54:28 07/17/20 19 Date of Last Pap Smear completed Estella Antoine MD [address], [place], [address], [facility] 08/08/2020 16:07:16 08/17/19 13 colonoscopy completed Whitney [facility] 08/08/2020 14:47:20 08/17/19 12 Hysteroscopy completed [facility] 08/08/2020 14:47:03 08/17/19 00 delivery completed [facility] 08/08/2020 14:45:22 08/17/18 95 lumpectomy of breast completed [facility] 08/08/2020 14:45:07 Imaging Results None recorded. Procedure Notes None recorded. Medical Equipment None Reported. Allergies No known drug allergies Medications Name Sig Start Date Stop Date Status Note LastModified by Organization Details LastModified Time azithromy kimmy 250 mg tablet 12/02 completed Not Available Not Available Not Available metronida zole 0.75 % (37.5 mg/5 gram) vaginal gel INSERT 1 APPLICAT ORFUL VAGINALL Y AT BEDTIME FOR 5 NIGHTS active Not Available Not Available No t Available Synthroid 100 mcg tablet TAKE 1 TABLET BY MOUTH DAILY active Not Available Not Available No t Available Diflucan 150 mg tablet take 1 tablet by oral route once 07/27 completed Prescrib ed Elsewher e: No Locat ion: [facility] odify By: ammisty Mason ncounter DateTime : 07/26/20 15 10:35:35 AM Not Available Not Available Not Available penicilli n V potassium 500 mg tablet TAKE 1 TABLET BY MOUTH FOUR TIMES DAILY UNTIL ALL TAKEN active Not Available Not Available No t Available Celebrex 200 mg capsule po the night before and 400mg po morning of the procedur e 08/02 completed Prescrib ed Elsewher e: No Locat ion: [facility] odify By: ammisty Mason ncounter DateTime : 07/20/20 15 02:20:34 PM Not Available Not Available Not Available Flagyl 500 mg tablet take 1 tablet by oral route every 12 hours 08/03 completed Prescrib ed Elsewher e: No Locat ion: [facility] odify By: lsloan Berto ncounter DateTime : 02/10/20 17 11:01:53 AM Not Available Not Available Not Available Cipro 500 mg tablet take 1 tablet by oral route every 12 hours 08/02 completed Prescrib ed Elsewher e: No Locat ion: [facility] odify By: omega saenz DateTime : 07/23/20 15 02:30:00 PM Not Available Not Available Not Available Synthroid 75 mcg tablet take 1 tablet by oral route every day 08/19 completed Prescrib ed Elsewher e: No Locat ion: [facility] odify By: jackie smithunthortencia DateTime : 08/26/19 18 02:22:40 PM Not Available Not Available Not Available Synthroid 50 mcg tablet TAKE 1 TABLET DAILY 08/12 completed Prescrib ed Elsewher e: No Locat ion: [facility] odify By: jackie smithunthortencia DateTime : 08/08/20 16 10:43:31 AM Not Available Not Available Not Available diazepam 10 mg tablet po 1 hour before the procedur e 08/02 completed Prescrib ed Elsewher e: No Locat ion: [facility] odify By: omega saenz DateTime : 07/20/20 15 02:20:34 PM Not Available Not Available Not Available methylpre dnisolone 4 mg tablets in a dose pack FOLLOW PACKAGE DIRECTIO NS active Not Available Not Available No t Available Galva 5 mg-325 mg tablet 2 tabs po 1 hour before the procedur e 08/02 completed Prescrib ed Elsewher e: No Locat ion: [facility] odify By: omega saenz DateTime : 07/20/20 15 02:20:34 PM Not Available Not Available Not Available hydrochlo rothiazid e active Not Available Not Available Not Available hydrochlo rothiazid e 12.5 mg tablet TAKE 1 TABLET BY MOUTH DAILY active Not Available Not Available No t Available Flovent Diskus 250 mcg/actua tion powder for inhalatio n INHALE 1 PUFF BY MOUTH EVERY 12 HOURS 12/02 completed Not Available Not Available Not Available Vitals Date Recorded Body height Body mass index (BMI) Body weight Systolic And Diastolic Provider Name and Address Organization Details Last Updated DateTime 12/02/2022 158.75 cm 36.9 kg/m2 41257.44 g 142/88 mm[Hg] [facility] 12/02/2022 16:53:56 Date Recorded Body height Body mass index (BMI) Body weight Systolic And Diastolic Provider Name and Address Organization Details Last Updated DateTime 08/08/2020 158.75 cm 34.9 kg/m2 47344.92 g 165/96 mm[Hg] [facility] 08/08/2020 15:59:07 Social History None recorded. Functional Status None recorded. Mental Status None recorded. Family History Relationship Description Onset Age of this Age Resolved Age Notes LastModified by Organization Details LastModified Time Father Hypertensive disorder [email or web address] Not available 2019 09:17:34 Sister Disorder of thyroid gland [email or web address] Not available 2019 09:17:58 Sister Uterine prolapse Not available 2022 16:35:59 Sister Osteoporosis [email or web address] Not availa ble 08/08/2020 09:19:23 Brother Disorder of thyroid gland smcaley Not available 2019 09:17:58 Mother Disorder of thyroid gland smcaley Not available 2019 09:18:07 Mother Cyst of ovary Not available 2022 16:35:59 Mother Osteoporosis [email or web address] Not availa ble 08/08/2020 09:19:23 Maternal Grandmother Carcinoma in situ of breast [email or web address] Not available 2022 16:35:59 Maternal Grandfather Congenital heart disease Not available 2022 16:35:59 Paternal Uncle Parkinson's disease [email or web address] Not available 2022 16:35:59 Notes:Brother: Thyroid disea se Father: Hypertension Maternal grandfather: Congenital heart disease Maternal grandmother: Cancer, breast Mother: osteoporosis, Thyroid disease, Ovarian Cyst Sister: osteoporosis, prolapsed uterus, Thyroid disease uncle: Parkinson's disease Medical History Condition Response Allergies (Food, seasonal, environmental ) N Other N Breast Cancer N Drug/Latex Allergies/Reactions N Blood Transfusion N Dermatologic Disorders N Lung Disease N Defects or Inherited Disease N Breast Problem N Gestational Diabetes N Hematologic disorders N Anesthesia Complications N History of STI N Deep Vein Thrombosis N Polycystic ovary syndrome N Anxiety Disorder N Autoimmune disease N Arthritis N Infertility N Polyps N Acid Reflux (GERD) N History of abnormal pap N Cancer N Stroke N Varicosities N Neurologic/Epilepsy N Endometriosis N High Cholesterol Y Headaches N Fibromyalgia N Kidney Disease N Heart Problems N Kidney or Bladder Problems N Thyroid Problems Y GI Problems N Eating Disorder N Anemia N Art (IVF or FET) N Psychiatric Illness N Ovarian Cancer N Diabetes N Pulmonary (TB, Asthma) N Hepatitis/Liver Disease N Eczema N Urinary Tract Infection N Abuse/Domestic Violence N Asthma N Trauma/Violence N Depression/ depression N Heart Disease N Pre-Eclampsia N Hypertension Y Osteoporosis N Thrombophilias N Gynecological History Statement/Question Response Date of Last Pap Smear 07/17/2019 Current Control Method None Date of Last Mammogram 11/14/2021 Date of Last Colonoscopy Most Recent Bone Density Obstetrics History GPAL:G 1 P 1 0 0 1 Type Value Full Term 1 Living 1 Total 1 Past Encounters Encounter ID Performer Location Encounter Start Date Encounter Closed Date Diagnosis/Indication Diagnosis SNOMED-CT Code Diagnosis ICD10 Code Diagnosis Note [id number] Estella Antoine MD [facility] [address] [address] 08/08/2020 15:49:52 08/12/2020 14:10:03 Body mass index 30+ - obesity 663027578 Z68.34 Hypothyroidism 78087359 E03.9 Elevated blood-pressure reading without diagnosis of hypertension 020884282 R03.0 Gynecologi c examination 68282289 Z01.419 [id number] Estella Antoine MD [facility] [address] [address] 12/02/2022 16:35:50 12/03/2022 12:48:54 Gynecologic examination 00677862 Z01.419 Health Concerns Section Related Observation LastModified by Organization Detai ls LastModified Time None Recorded Concern Status LastModified by Organization Details LastModified Time None Recorded Advance Directives Directive None Recorded Payers Insurance Date Sequence Insurance Name Policy Number Policy Ashraf Covered Member ID Ashraf Member ID Guarantor Name 07/08/2021 1 [employer] (PPO) [id number] Stephane Carreno [id number] Stephane Carreno 12/01/2022 1 [employer] [id number] Stephane Hanna Ev [id number] Stephane Ev 12/02/[address] [facility] Stephane Ev [id number] Stephane Ev Notes Date Note Type Note Provider Name and Address Organization Details Recorded Time 08/08/2020 text/html Patient is a 60yo who presents for an annual exam. Menopause around 55, no bleeding. No cocnerns. last pap-NILM 1 year ago, but no HPV done mammo-08/2019 colonoscopy-2012 , 10 years dexa-none sexually active-yes seatbelts-yes exercise-yes depression-denie s domestic violence-denies tobacco-no concerns-none Estella Antoine MD [address], [place], [address], [facility] 08/08/2020 16:37:26 12/02/2022 text/html Patient is a 62yo [id number] who presents for an annual exam. [place] 55, no bleeding. No concerns. last pap-2019 mammo-10/2021 colonoscopy-2012 dexa-none menopause-y sexually active-y seatbelts-y exercise-y depression-denie s domestic violence-denies tobacco-n concerns- Estella Antoine MD [address], [place], [address], [facility] 12/02/2022 18:45:24 OBGyn Episode Ob Episode Information Episode Created Date Number of Fetuses Patient Bloodtype Patient rh Status Prepregnancy Weight lbs Domestic Partner Domestic Partner Phone Father Name Forming Department End Finder Status 08/08/20 20 1 CLOSED Fetus Data First Name Last Name Admitted to NICU Weight (g) Sex Living Outcome Pediatric Complications Fetus ID Race Codes Race Delivery Type [id number] Primary Warren Calculation Initial Warren Date Initial Exam Date Initial Exam Provider Initial Ultrasound Date Last Menstrual Period Date Ultra Sound Weeks Gestation 0 Eighteen To Twenty Week Warren Update Ultra Sound Date Fundal Height At Umbil Quickening Date Ultra Sound Latest Weeks Gestation Final Warren Confirmed By Final Warren Confirmed Date Final Warren Date Ultra Sound Latest Days Gestation 0 0 Menstrual History Last Menstrual Date Menses Monthly On Bcp Conception Prior Menses Frequency Hcg Plus Date Menarche Onset Age Delivery Information Delivery Date Delivery Type Labor Anesthesia Weeks Gestation Incision Type Labor Labor Length Hrs Delivered By Post Complications Tubal Sterilization Discharge Date Comments 0 Discharge Information Feeding Method Contraceptive Method Maternal HG B and HCT Levels
--- OUTSIDE RECORDS SUMMARY | 2025-03-02 15:55 | XMS_ITS | Clinical Summary ---
Author Organization [facility] Address [address] [place] [address] Phone Care Team Providers Care Bander And Cellophaner Helper Machine Name Role Phone Sarah Ward MD Primary Care Provider [phone] Allergies No known active allergies Medications No known medications Active Problems Patient Care Coordination No te Formatting of this note migh t be different from the original. Primary Care: Sarah Ward MD Referring Provider: Allegra Suggs MD [address] [place] [address] Other: Problem Noted Date Diagnosed Date Abnormal mammogram 07/11/2013 Melanoma Family History Medical History Relation Name Comments Stroke Father Heart Disease Maternal Grandfather Breast Cancer Maternal Grandmother in her 70's Relation Name Status Comments Father Maternal Grandfather Maternal Grandmother Social History Tobacco Use Types Packs/Day Years Used Date Smoking Tobacco: Never Smokeless Tobacco: Never Alcohol Use Standard Drinks/Week Comments Yes 0 (1 standard drink = 0.6 oz pur e alcohol) rare Comments No Sex and Gender Information Value Date Recorded Sex Assigned at Not on file Legal Sex Female 11:33 AM CONCRETE POLISHER Gender Identity Not on file Sexual Orientation Not on file Occupation Industry Job Start Date Job End Date Not on file Not on file Not on file Not on file Last Filed Vital Signs Vital Sign Reading Time Taken Comments Blood Pressure 161/81 07/12/2013 10:27 AM CONCRETE POLISHER Pulse 67 07/12/2013 10:27 AM CONCRETE POLISHER Temperature - - Respiratory Rate - - Oxygen Saturation - - Inhaled Oxygen Concentration - - Weight 75.8 kg (167 lb) 07/12/2013 10:27 AM CONCRETE POLISHER Height 160 cm (5' 3) 07/12/2013 10:27 AM CONCRETE POLISHER Body Mass Index 29.58 07/12/2013 10:27 AM CONCRETE POLISHER Plan of Treatment Health Maintenance Due Date Last Done Comments DTAP/TDAP/TD VACCINES (1 - Tdap) 1981 HPV/Cotest (21-29) 1983 CERVICAL CANCER SCREENING 1992 HPV/Cotest (30-65) 1992 PAP SMEAR 1992 COLORECTAL SCREENING 2007 Colorectal Cancer Screening 2007 FIT-DNA Q 3 years 2007 FIT/FOBT Q 1 year 2007 Flex Sig/CT Colonography Q 5 years 2007 ZOSTER VACCINE (1 of 2) 2012 BREAST CANCER SCREENING 07/12/2014 07/12/20 13, 07/08/2013, 07/01/2013, Additional history exists INFLUENZA VACCINE (#1) 2025 RSV VACCINE (60+ or ) (1 - 1-dose 75+ series) 2037 Procedures Procedure Name Priority Date/Time Associated Diagnosis Comments MAMMO DIAGNOSTIC UNI LEFT W OR WO CAD Routine 07/12/2013 1:37 PM CONCRETE POLISHER Abnormal mammogram from Last 3 Months or Most Recently Relevant to Health Maintenance Results * MAMMO DIGITAL DIAG UNI LEFT (07/12/2013 1:37 PM CONCRETE POLISHER) Anatomical Region Laterality Modality Breast Left Mammography 07/12/2013 1:36 PM CONCRETE POLISHER Impressions 07/13/2013 7:35 AM CONCRETE POLISHER IMPRESSION: Technically successful vacuum assisted ultrasound guided core biopsy with tissue marker placement. Dictated at [facility] Narrative 07/13/2013 7:35 AM CONCRETE POLISHER VACUUM ASSISTED ULTRASOUND-GUIDED CORE BIOPSY OF THE LEFT BREAST, TISSUE MARKER CLIP PLACEMENT, UNILATERAL DIGITAL MAMMOGRAM. Jul 12, 2013 01:37:33 PM INDICATION: Concerning abnormality on sonography TECHNIQUE/FINDINGS: The risks, potential benefits and alternatives of the procedure were discussed with the patient and written and verbal informed consent was obtained. The lesion of interest located in the left breast at the 7:00 position was localized using sonographic guidance. After sterile preparation of the skin overlying the lesion, less than 10 ml of lidocaine was utilized for local anesthesia and a small skin incision was made. A 10 gauge vacuum assisted core biopsy needle was then advanced through the lesion of interest using sonographic guidance. A total of 2 tissue cores were obtained throughout the lesion. A tissue marker clip was then placed at the biopsy site using sonographic guidance. Hemostasis was achieved. A sterile bandage, skin glue and an ice pack were applied. A two-view left unilateral digital mammogram was obtained post-procedure and this demonstrates that the tissue marker clip is in the expected position. The patient tolerated the procedure well and there was no evidence of immediate complication. The patient was given verbal as well as written post-procedure instructions prior to the release from the department. The tissue cores were submitted to surgical pathology in formalin for histological analysis. Procedure Note Romeo Etienne MD - 07/13/2013 VACUUM ASSISTED ULTRASOUND-GUIDED CORE BIOPSY OF THE LEFT BREAST, TISSUE MARKER CLIP PLACEMENT, UNILATERAL DIGITAL MAMMOGRAM. Jul 12, 2013 01:37:33 PM INDICATION: Concerning abnormality on sonography TECHNIQUE/FINDINGS: The risks, potential benefits and alternatives of the procedure were discussed with the patient and written and verbal informed consent was obtained. The lesion of interest located in the left breast at the 7:00 position was localized using sonographic guidance. After sterile preparation of the skin overlying the lesion, less than 10 ml of lidocaine was utilized for local anesthesia and a small skin incision was made. A 10 gauge vacuum assisted core biopsy needle was then advanced through the lesion of interest using sonographic guidance. A total of 2 tissue cores were obtained throughout the lesion. A tissue marker clip was then placed at the biopsy site using sonographic guidance. Hemostasis was achieved. A sterile bandage, skin glue and an ice pack were applied. A two-view left unilateral digital mammogram was obtained post-procedure and this demonstrates that the tissue marker clip is in the expected position. The patient tolerated the procedure well and there was no evidence of immediate complication. The patient was given verbal as well as written post-procedure instructions prior to the release from the department. The tissue cores were submitted to surgical pathology in formalin for histological analysis. IMPRESSION IMPRESSION: Technically successful vacuum assisted ultrasound guided core biopsy with tissue marker placement. Dictated at [facility] Gisell Hanson MD MAMMO ORDERABLES Final Result from Last 3 Months or Most Recently Relevant to Health Maintenance Care Teams Bander And Cellophaner Helper Machine Relationship Specialty Start Date End Date Sarah Ward MD PCP - General Family Practice 07/12/13
[2025-03-02 19:16] LABS: Anion Gap 8 mmol/L (4-12); Blood Urea Nitrogen 27 mg/dL (7-17); Calcium 9.9 mg/dL (8.4-10.2); Carbon Dioxide 28 mmol/L (22-30); Chloride 100 mmol/L (98-107); Estimated Glomerular Filt Rate 36; Glucose 98 mg/dL (65-110); Potassium 4.2 mmol/L (3.4-5.0); Sodium 136 mmol/L (137-145)
== END 2025-03-02 15:51 | disposition home or self-care (01) ==
LOC: ANHGOSHLAB 15:53
PROVIDERS: PCP Nurse Practitioner Family; Visit Provider Nurse Practitioner Family
DX: R79.89 Other specified abnormal findings of blood chemistry (principal)
CPT/HCPCS: 36415; 80048

== ENCOUNTER 2025-05-30 15:28 | Outpatient (CLI) | payer OTHER, SELFPAY ==
--- NOTE | ~2025-05-30 | XR_ITS ---
EXAMINATION: XR hip RT 2V w AP pelvis, 05/30/2025 15:44 CDT HISTORY: Pain in right hip x 7 months, no inj, no surg COMPARISON: No comparisons available. Findings: No acute fracture or malalignment. No significant degenerative changes. Soft tissues unremarkable. Impression: No acute fracture or malalignment. Reviewed, dictated and finalized at location P. Impression: No acute fracture or malalignment.
== END 2025-05-30 15:29 | disposition home or self-care (01) ==
LOC: GOSHIMG 15:28
PROVIDERS: PCP Nurse Practitioner Family; Visit Provider Nurse Practitioner Family
DX: M25.551 Pain in right hip (principal)
CPT/HCPCS: 73502

== ENCOUNTER 2025-05-30 15:55 | Outpatient (CLI) | payer OTHER, SELFPAY ==
--- OUTSIDE RECORDS SUMMARY | 2025-05-30 17:23 | XMS_ITS | Clinical Summary ---
Author Organization [facility] Address [address] [place] [address] Phone Care Team Providers Care Splicing Machine Operator Automatic Name Role Phone Sarah Ward MD Primary Care Provider [phone] Allergies No known active allergies Medications No known medications Active Problems Patient Care Coordination No te Formatting of this note migh t be different from the original. Primary Care: Sarah Ward MD Referring Provider: Allegra Suggs MD [address] [place] [address] Other: Problem Noted Date Diagnosed Date Abnormal [...] on file Legal Sex Female 11:33 AM HYDRAULIC REPAIRER Gender Identity Not on file Sexual Orientation Not on file Occupation Industry Job Start Date Job End Date Not on file Not on file Not on file Not on file Last Filed Vital Signs Vital Sign Reading Time Taken Comments Blood Pressure 161/81 07/12/2013 10:27 AM HYDRAULIC REPAIRER Pulse 67 07/12/2013 10:27 AM HYDRAULIC REPAIRER Temperature - - Respiratory Rate - - Oxygen Saturation - - Inhaled Oxygen Concentration - - Weight 75.8 kg (167 lb) 07/12/2013 10:27 AM HYDRAULIC REPAIRER Height 160 cm (5' 3) 07/12/2013 10:27 AM HYDRAULIC REPAIRER Body Mass Index 29.58 07/12/2013 10:27 AM HYDRAULIC REPAIRER Plan of Treatment Health Maintenance Due Date [...] OR WO CAD Routine 07/12/2013 1:37 PM HYDRAULIC REPAIRER Abnormal mammogram from Last 3 Months or Most Recently Relevant to Health Maintenance Results * MAMMO DIGITAL DIAG UNI LEFT (07/12/2013 1:37 PM HYDRAULIC REPAIRER) Anatomical Region Laterality Modality Breast Left Mammography 07/12/2013 1:36 PM HYDRAULIC REPAIRER Impressions 07/13/2013 7:35 AM HYDRAULIC REPAIRER IMPRESSION: Technically successful vacuum assisted ultrasound guided core biopsy with tissue marker placement. Dictated at [facility] Narrative 07/13/2013 7:35 AM HYDRAULIC REPAIRER VACUUM ASSISTED ULTRASOUND-GUIDED CORE BIOPSY OF THE [...] biopsy with tissue marker placement. Dictated at [facility] Gisell Hanson MD MAMMO ORDERABLES Final Result from Last 3 Months or Most Recently Relevant to Health Maintenance Care Teams Splicing Machine Operator Automatic Relationship Specialty Start Date End Date Sarah Ward MD PCP - General Family Practice 07/12/13
[2025-05-30 17:30] LABS: Hematocrit 37.9 % (37.0-47.0); Hemoglobin 11.9 g/dL (12.0-15.0); Immature Granulocyte Percent A 0.2 % (0-0.5); Lymphocytes Absolute Auto 1.30 K/mm3 (0.9-3.2); Mean Corpuscular HGB Conc 31.4 g/dl (32-36); Mean Corpuscular Hemoglobin 29.0 pg (26-34); Mean Corpuscular Volume 92.4 fl (80-100); Nucleated Red Blood Cells Absolute Auto 0.000 K/mm3 (0.0-0.012); Nucleated Red Blood Cells Perc 0.0 % (0.0-0.2); Platelet Count Result 352 k/mm3 (150-375); Red Blood Count 4.10 M/mm3 (4.2-5.4); White Blood Count 8.2 K/mm3 (4.5-10.0)
[2025-05-30 18:05] LABS: Alanine Aminotransferase 20 U/L (6-35); Albumin Level 4.3 g/dL (3.5-5.1); Alkaline Phosphatase 50 U/L (38-126); Anion Gap 9 mmol/L (4-12); Aspartate Amino Transferase 31 U/L (14-36); Bilirubin,Total 0.3 mg/dL (0.2-1.3); Blood Urea Nitrogen 42 mg/dL (7-17); Calcium 9.6 mg/dL (8.4-10.2); Carbon Dioxide 30 mmol/L (22-30); Chloride 100 mmol/L (98-107); Estimated Glomerular Filt Rate 35; Glucose 99 mg/dL (65-110); Potassium 4.1 mmol/L (3.4-5.0); Sodium 139 mmol/L (137-145); Total Protein 7.6 g/dL (6.3-8.2)
[2025-05-30 18:41] LABS: Thyroid Stimulating Hormone 0.215 uIU/mL (0.465-4.680)
== END 2025-05-30 15:56 | disposition home or self-care (01) ==
LOC: ANHGOSHLAB 15:56
PROVIDERS: PCP Nurse Practitioner Family; Visit Provider Nurse Practitioner Family
DX: I10 Essential (primary) hypertension (principal); E03.9 Hypothyroidism, unspecified; K21.9 Gastro-esophageal reflux disease without esophagitis; E55.9 Vitamin D deficiency, unspecified; E66.9 Obesity, unspecified
CPT/HCPCS: 36415; 80053; 82306; 84443; 85025

== ENCOUNTER 2025-08-15 08:42 | Outpatient (CLI) | payer OTHER, SELFPAY ==
--- OUTSIDE RECORDS SUMMARY | 2025-08-15 08:51 | XMS_ITS | Clinical Summary ---
Author Organization [facility] Address [address] [place] [address] Phone Care Team Providers Care Software Developer Manager Name Role Phone Sarah Ward MD Primary Care Provider Allergies No known active allergies Medications No known medications Active Problems Patient Care Coordination No te Formatting of this note migh t be different from the original. Primary Care: Sarah Ward MD Referring Provider: Allegra Suggs MD [address] [place] [address] Other: Problem Noted Date Diagnosed Date Abnormal [...] on file Legal Sex Female 11:33 AM LATIN TEACHER Gender Identity Not on file Sexual Orientation Not on file Occupation Industry Job Start Date Job End Date Not on file Not on file Not on file Not on file Last Filed Vital Signs Vital Sign Reading Time Taken Comments Blood Pressure 161/81 07/12/2013 10:27 AM LATIN TEACHER Pulse 67 07/12/2013 10:27 AM LATIN TEACHER Temperature - - Respiratory Rate - - Oxygen Saturation - - Inhaled Oxygen Concentration - - Weight 75.8 kg (167 lb) 07/12/2013 10:27 AM LATIN TEACHER Height 160 cm (5' 3) 07/12/2013 10:27 AM LATIN TEACHER Body Mass Index 29.58 07/12/2013 10:27 AM LATIN TEACHER Plan of Treatment Health Maintenance Due Date [...] OR WO CAD Routine 07/12/2013 1:37 PM LATIN TEACHER Abnormal mammogram from Last 3 Months or Most Recently Relevant to Health Maintenance Results * MAMMO DIGITAL DIAG UNI LEFT (07/12/2013 1:37 PM LATIN TEACHER) Anatomical Region Laterality Modality Breast Left Mammography 07/12/2013 1:36 PM LATIN TEACHER Impressions 07/13/2013 7:35 AM LATIN TEACHER IMPRESSION: Technically successful vacuum assisted ultrasound guided core biopsy with tissue marker placement. Dictated at [facility] Narrative 07/13/2013 7:35 AM LATIN TEACHER VACUUM ASSISTED ULTRASOUND-GUIDED CORE BIOPSY OF THE [...] biopsy with tissue marker placement. Dictated at [facility] Gisell Hanson MD MAMMO ORDERABLES Final Result from Last 3 Months or Most Recently Relevant to Health Maintenance Care Teams Software Developer Manager Relationship Specialty Start Date End Date Sarah Ward MD PCP - General Family Practice 07/12/13
[2025-08-15 18:59] LABS: Thyroid Stimulating Hormone 0.212 uIU/mL (0.465-4.680)
== END 2025-08-15 08:43 | disposition home or self-care (01) ==
LOC: ANHGOSHLAB 08:43
PROVIDERS: PCP Nurse Practitioner Family; Visit Provider Nurse Practitioner Family
DX: E03.9 Hypothyroidism, unspecified (principal)
CPT/HCPCS: 36415; 84443